=== PATIENT | male | born 1995 | race Caucasian/White ===

== ENCOUNTER 2023-04-08 13:26 | Emergency (ER) | payer OTHER ==
[~2023-04-08] VITALS: Ht 193 cm; Wt 102.1 kg
[2023-04-08] MEDS ORDERED: TRAMADOL HCL 50 MG TAB PO STA (14:09)
[2023-04-08] MEDS ORDERED: KETOROLAC TROME10 MG PO (17:54)
[2023-04-08 18:44] VITALS: BP 128/68; PULSE 73; RESP 18; TEMP 98.4; O2SAT 100
== END 2023-04-08 18:00 | disposition home or self-care (01) ==
LOC: ER 13:33
DX: R51.9 Headache, unspecified (principal); S16.1XXA Strain of muscle, fascia and tendon at neck level, initial encounter; M54.50 Low back pain, unspecified; V44.5XXA Car driver injured in collision with heavy transport vehicle or bus in traffic accident, initial encounter; Y92.488 Other paved roadways as the place of occurrence of the external cause
CPT/HCPCS: 70450; 71046; 72100; 72125; 72131; 99283